=== PATIENT | female | born 1975 | race Caucasian/White ===

== ENCOUNTER 2017-04-09 09:38 | Emergency (ER) | payer MEDICAID ==
[~2017-04-09] VITALS: Ht 152.4 cm; Wt 68.9 kg
[2017-04-09 09:40] VITALS: BP 122/79
[2017-04-09 11:48] LABS: microscopic required? YES; urine erythrocyte 3+ (NEGATIVE)
== END 2017-04-09 11:10 | disposition home or self-care (01) ==
LOC: ED 09:38
PROVIDERS: Emergency Medicine
DX: S13.4XXA Sprain of ligaments of cervical spine, initial encounter (principal); R51 Headache; X58.XXXA Exposure to other specified factors, initial encounter; Y93.89 Activity, other specified; Y99.8 Other external cause status; Y92.89 Other specified places as the place of occurrence of the external cause
CPT/HCPCS: J1885